=== PATIENT | male | born 1945 | race Caucasian/White ===

== ENCOUNTER 2016-05-14 11:28 | Outpatient (CLI) | payer MEDICARE, BC ==
[2016-05-14 12:32] LABS: ALT (SGPT) 41 U/L (0-55); AST (SGOT) 50 U/L (5-34); Alkaline Phosphatase 98 U/L (40-150); Anion Gap 13 mmol/L (10-20); BUN (Urea Nitrogen) 21 mg/dL (8.4-25.7); Bilirubin, Total 0.4 mg/dL (0.2-1.2); Calc. Creatinine Clearance 0 mL/min (70-130); Calcium 8.9 mg/dL (7.8-10.44); Carbon Dioxide 25 mmol/L (23-31); Chloride 108 mmol/L (98-107); Estimated GFR-MDRD 60; Globulin 2.9 g/dL (2.4-3.5); LDL Cholesterol, Calculated 103 mg/dL; Protein, Total 6.7 g/dL (5.8-8.1)
== END 2016-05-14 11:29 | disposition home or self-care (01) ==
LOC: BURLAB 11:28
PROVIDERS: ATTEND Internal Medicine Cardiovascular Disease
DX: E78.00 Pure hypercholesterolemia, unspecified (principal)
CPT/HCPCS: 36415; 80053; 80061

== ENCOUNTER 2016-07-07 13:43 | Outpatient (CLI) | payer MEDICARE, BC | END 2016-07-07 13:44 | disposition home or self-care (01) | LOC: HPCALD 13:43 | PROVIDERS: ATTEND Family Medicine | DX: R31.9 Hematuria, unspecified (principal) | CPT/HCPCS: 87086 ==

== ENCOUNTER 2016-07-07 14:21 | Outpatient (CLI) | payer MEDICARE, BC ==
--- NOTE | 2016-07-07 22:08 | CT ---
CT ABDOMEN AND PELVIS WITHOUT CONTRAST: Date: 07-07-[address] of the abdomen and pelvis was obtained for evaluation of hematuria. Axial slices were acqu ired after giving no oral or IV contrast in a renal stone protocol. Coronal reconstructions were don e. The lung bases show no acute infiltrates or effusions. The liver, spleen, pancreas, adrenal glands, and abdominal aorta all showed no acute findings. A calcified granuloma or two was noted in the live r. Bilateral renal cysts are present, including a large parapelvic cyst measuring 3.7 cm in the righ t kidney. It is similar in appearance to a 10-02-14 study. The aorta has a stent within its lower por tion and iliac arteries. Small calculi are present bilaterally in each kidney as before. While there is no hydronephrosis, to day there is a 6 mm calculus that appears to be either at the left UVJ or recently extruded into the bladder. There is no ureteral dilation at all. This is a new finding compared to the 2015 study. The bowel is nondistended. There are no inflammatory changes around bowel. No free air or free fluid was seen. CT of the pelvis shows prostatic enlargement. No pelvic masses or fluid collections were seen. Degen erative changes are prominent in the lumbar spine. IMPRESSION: 1. Bilateral renal calculi with evidence of a 6 mm calculus either in the urinary bladder on the lef t or right at the left UVJ. In any case, there is no ureteral dilatation remaining or hydronephrosis . 2. Bilateral nonobstructing renal calculi. Bilateral renal cysts. 3. Other findings as above. POS: HOME
== END 2016-07-07 14:22 | disposition home or self-care (01) ==
LOC: BURCT 14:21
PROVIDERS: ATTEND Family Medicine
DX: R31.9 Hematuria, unspecified (principal); N20.0 Calculus of kidney; N28.1 Cyst of kidney, acquired
CPT/HCPCS: 74176; 87086

== ENCOUNTER 2016-07-22 16:08 | Outpatient (CLI) | payer MEDICARE, BC | END 2016-07-22 16:09 | disposition home or self-care (01) | LOC: HPCALD 16:08 | PROVIDERS: ATTEND Family Medicine | DX: J32.0 Chronic maxillary sinusitis (principal) | CPT/HCPCS: 87070; 87077; 87186; 87205 ==

== ENCOUNTER 2016-08-14 11:35 | Outpatient (CLI) | payer MEDICARE, BC ==
--- NOTE | 2016-08-14 12:42 | RAD ---
LEFT SHOULDER 3 VIEWS: HISTORY: A 71-year-old male with left shoulder pain. COMPARISON: 02/08/16. FINDINGS: Severe left glenohumeral joint arthropathy changes with marked sclerosis with flattening deformity o f both the humeral head and glenoid. There is a large ossific focus probably in the subcoracoid rec ess, evidence for a synovial osteochondroma. No acute fracture or dislocation. IMPRESSION: Severe left glenohumeral joint arthropathy. Large synovial osteochondroma. No acute fracture or di slocation. Little change from 02/08/16. POS: [facility]
== END 2016-08-14 11:36 | disposition home or self-care (01) ==
LOC: BURRAD 11:35
PROVIDERS: ATTEND Family Medicine
DX: M25.512 Pain in left shoulder (principal); M19.012 Primary osteoarthritis, left shoulder; D36.7 Benign neoplasm of other specified sites

== ENCOUNTER 2016-11-17 12:20 | Emergency (ER) | payer MEDICARE, BC ==
[2016-11-17 13:12] LABS: #Monocytes 0.5 thou/uL (0.11-0.59); #Neutrophils 3.5 thou/uL (1.40-6.50); %Basophils 0.7 % (0.0-1.0); %Eosinophils 0.2 % (0.0-10.0); %Lymphocytes 20.2 % (21.0-51.0); %Neutrophils 68.9 % (42.0-75.0); Mean Corpuscular HGB CONC 32.7 g/dL (32.0-36.0); Mean Corpuscular Hemoglobin 28.6 pg (27.0-31.0); Mean Corpuscular Volume 87.4 fl (80.0-94.0); Mean Platelet Volume 7.8 fL (7.4-10.4); Platelet Count 143 thou/uL (130-400); Red Blood Cell (RBC) Count 4.89 mill/uL (4.70-6.10); White Blood Cell (WBC) Count 5.1 thou/uL (4.8-10.8)
[2016-11-17 13:21] LABS: ALT (SGPT) 43 U/L (8-55); AST (SGOT) 43 U/L (5-34); Albumin 4.2 g/dL (3.4-4.8); Alkaline Phosphatase 69 U/L (40-150); Anion Gap 14 mmol/L (10-20); BUN (Urea Nitrogen) 13 mg/dL (8.4-25.7); Bilirubin, Total 0.8 mg/dL (0.2-1.2); Calc. Creatinine Clearance 0 mL/min (70-130); Calcium 10.1 mg/dL (7.8-10.44); Carbon Dioxide 23 mmol/L (23-31); Chloride 108 mmol/L (98-107); Estimated GFR-MDRD 86; Globulin 2.9 g/dL (2.4-3.5); Glucose 109 mg/dL (80-115); Magnesium 1.8 mg/dL (1.6-2.6); Potassium 3.9 mmol/L (3.5-5.1); Protein, Total 7.1 g/dL (5.8-8.1); Sodium 141 mmol/L (136-145)
[2016-11-17 13:23] LABS: CKMB 2.4 ng/mL (0-6.6)
== END 2016-11-17 13:55 | disposition home or self-care (01) ==
LOC: BURERS 12:20
DX: F41.9 Anxiety disorder, unspecified (principal); R68.2 Dry mouth, unspecified; G47.30 Sleep apnea, unspecified; K21.9 Gastro-esophageal reflux disease without esophagitis; N40.0 Benign prostatic hyperplasia without lower urinary tract symptoms; M19.90 Unspecified osteoarthritis, unspecified site; J44.9 Chronic obstructive pulmonary disease, unspecified; I25.2 Old myocardial infarction; I25.10 Atherosclerotic heart disease of native coronary artery without angina pectoris; D50.9 Iron deficiency anemia, unspecified; E78.5 Hyperlipidemia, unspecified; I10 Essential (primary) hypertension; F32.9 Major depressive disorder, single episode, unspecified; Z87.891 Personal history of nicotine dependence; Z79.82 Long term (current) use of aspirin; Z79.899 Other long term (current) drug therapy
CPT/HCPCS: 36415; 80053; 82553; 83735; 83880; 84484; 85025; 93005

== ENCOUNTER 2016-12-17 16:18 | Emergency (ER) | payer MEDICARE, BC ==
[2016-12-17 16:51] LABS: #Basophils 0.1 thou/uL (0.0-0.2); #Eosinphils 0.2 thou/uL (0.0-0.7); #Lymphocytes 1.1 thou/uL (1.20-3.40); #Monocytes 0.7 thou/uL (0.11-0.59); %Basophils 1.3 % (0.0-1.0); %Eosinophils 4.8 % (0.0-10.0); %Lymphocytes 21.7 % (21.0-51.0); %Monocytes 13.5 % (0.0-10.0); %Neutrophils 58.8 % (42.0-75.0); Hemoglobin 12.4 g/dL (14.0-18.0); Mean Corpuscular HGB CONC 32.1 g/dL (32.0-36.0); Mean Corpuscular Hemoglobin 28.3 pg (27.0-31.0); Mean Platelet Volume 6.9 fL (7.4-10.4); PLT Morphology Comment HISTORY OF LOW PLATELET COUNTS; Platelet Count 112 thou/uL (130-400); RBC Distribution Width 16.1 % (11.5-14.5); White Blood Cell (WBC) Count 5.1 thou/uL (4.8-10.8)
[2016-12-17 16:58] LABS: MDiff Complete? YES
[2016-12-17 17:02] LABS: ALT (SGPT) 26 U/L (8-55); AST (SGOT) 39 U/L (5-34); Albumin 3.7 g/dL (3.4-4.8); Alkaline Phosphatase 81 U/L (40-150); Anion Gap 13 mmol/L (10-20); BUN (Urea Nitrogen) 21 mg/dL (8.4-25.7); Bilirubin, Total 0.7 mg/dL (0.2-1.2); Calc. Creatinine Clearance 0 mL/min (70-130); Calcium 9.7 mg/dL (7.8-10.44); Carbon Dioxide 27 mmol/L (23-31); Chloride 105 mmol/L (98-107); Estimated GFR-MDRD 56; Globulin 3.2 g/dL (2.4-3.5); Glucose 79 mg/dL (80-115); Potassium 4.2 mmol/L (3.5-5.1); Protein, Total 6.9 g/dL (5.8-8.1); Sodium 141 mmol/L (136-145)
[2016-12-17 17:03] LABS: CKMB 2.2 ng/mL (0-6.6)
[2016-12-17] MEDS ORDERED: Furosemide 40 MG/4 ML VIAL ONE (17:16)
[2016-12-17] MEDS ORDERED: Nitroglycerin 2% Ointment 1 INCH/1 GM Packet ONE (17:16)
--- NOTE | 2016-12-17 17:37 | RAD ---
PORTABLE CHEST: Date: 12/17/16 An AP portable film at 1631 hours is compared with an 11/02/16 study. Mild to moderate cardiomegaly is about the same as before. Median sternotomy sutures are seen from p rior surgery. The vessels are beginning to look a touch indistinct. There may be the very beginnings of some congestion. There is also slight blunting of the left costophrenic angle suggesting that th ere might be a tiny left pleural effusion. There are no lobar consolidations. IMPRESSION: Cardiomegaly with perhaps very early congestion. POS: HOME
[2016-12-17 18:09] LABS: Bilirubin Negative (Negative); Blood, Urine Negative (Negative); Clarity Clear (Clear); Glucose, Urine (Dipstick) Negative (Negative); Leukocyte Trace (Negative); Nitrite Negative (Negative); Protein, Urine (Dipstick) Negative (Neg-Trace); Specific Gravity, Urine 1.015 (1.005-1.030); Urobilinogen 0.2 mg/dL (0.2-1.0)
[2016-12-17 18:16] LABS: Bacteria/HPF None Seen HPF (None Seen); Crystals/HPF None Seen HPF (Negative); Hyaline Casts/LPF NONE SEEN LPF (0-3 Hyaline); Other Casts/LPF None Seen LPF (0-3 Hyaline); Oval Fat Bodies/HPF None Seen HPF (None Seen); RBC/HPF None Seen HPF (0-3); Renal Epithelial None Seen HPF (0-3); Sperm/HPF None Seen HPF (None Seen); Squamous Epithelial 0-3 HPF (0-3); Transitional Epithelial NONE SEEN HPF (0-3); Trichomonas/HPF None Seen HPF (None Seen); WBC/HPF 0-3 HPF (0-3); Yeast-All Forms None Seen HPF (None Seen)
== END 2016-12-17 18:24 | disposition short-term general hospital (02) ==
LOC: BURERS 16:18
DX: I11.0 Hypertensive heart disease with heart failure (principal); I50.9 Heart failure, unspecified; D50.9 Iron deficiency anemia, unspecified; R79.89 Other specified abnormal findings of blood chemistry; K21.9 Gastro-esophageal reflux disease without esophagitis; M19.90 Unspecified osteoarthritis, unspecified site; J44.9 Chronic obstructive pulmonary disease, unspecified; I25.10 Atherosclerotic heart disease of native coronary artery without angina pectoris; E78.5 Hyperlipidemia, unspecified; G47.30 Sleep apnea, unspecified; I25.2 Old myocardial infarction; F41.9 Anxiety disorder, unspecified; F32.9 Major depressive disorder, single episode, unspecified; Z87.891 Personal history of nicotine dependence; Z79.82 Long term (current) use of aspirin; Z79.899 Other long term (current) drug therapy
CPT/HCPCS: 71010; 80053; 81003; 81015; 82553; 83880; 84484; 85025; 93005; 94760; 96374; J1940

== ENCOUNTER 2017-03-11 14:05 | Outpatient (CLI) | payer MEDICARE, BC, OTHER ==
--- NOTE | 2017-03-11 15:16 | RAD ---
LEFT RIBS TWO VIEWS: HISTORY: Left rib fracture. Pain. FINDINGS: Callus formation and periosteal reaction surround a healing fracture at the posterolateral aspect of the left 9th rib. No evidence of pneumothorax. No new rib fractures are apparent. IMPRESSION: Healing left 9th rib fracture. POS: [facility]
== END 2017-03-11 14:06 | disposition home or self-care (01) ==
LOC: BURRAD 14:05
PROVIDERS: ATTEND Family Medicine
DX: S22.32XD Fracture of one rib, left side, subsequent encounter for fracture with routine healing (principal)

== ENCOUNTER 2017-04-03 14:57 | Inpatient (IN) | payer MEDICARE, BC ==
[2017-04-03] MEDS ORDERED: Bisacodyl 5 MG TAB PO PRN (21:13)
[2017-04-03] MEDS ORDERED: Calcium Carbonate 500 MG TAB PO PRN (21:13)
[2017-04-03] MEDS ORDERED: Bisacodyl 10 MG SUPP PR PRN (21:13)
[2017-04-03] MEDS ORDERED: Milk Of Magnesia 30 ML UDCUP PO PRN (21:13)
[2017-04-03] MEDS ORDERED: PROVENTIL INHALER 6.7 G (200 INHALATIONS) INH PRN (21:13)
[2017-04-03] MEDS ORDERED: Famotidine 20 MG TAB PO SCH (22:15)
[2017-04-03] MEDS ORDERED: Oseltamivir 75 MG CAP PO SCH (22:15)
[2017-04-03] MEDS ORDERED: Amiodarone 200 MG TAB PO SCH (22:15)
[2017-04-03] MEDS ORDERED: Carvedilol 25 MG TAB PO SCH (22:15)
[2017-04-03] MEDS ORDERED: DULoxetine 30 MG CAP PO SCH (22:30)
[2017-04-03] MEDS ORDERED: Tamsulosin HCl 0.4 MG CAP PO SCH (22:30)
[2017-04-03] MEDS ORDERED: Oseltamivir 75 MG CAP ONE (22:59)
[2017-04-04] MEDS ORDERED: Oseltamivir 75 MG CAP ONE ×2 (08:44→21:41)
[2017-04-04] MEDS ORDERED: PITAVASTATIN CALCIUM 2 MG PO SCH (09:00)
[2017-04-04] MEDS ORDERED: Fluticasone Propionate Nasal Spray 16 gm Bottle NASAL PRN (09:00)
[2017-04-04] MEDS: Famotidine 20 MG TAB PO SCH ×2 (09:11→21:46)
[2017-04-04] MEDS: Amiodarone 200 MG TAB PO SCH ×2 (09:12→21:47)
[2017-04-04] MEDS: Losartan Potassium 50 MG TAB PO SCH (09:13)
[2017-04-04] MEDS: DULoxetine 30 MG CAP PO SCH ×2 (09:14→21:47)
[2017-04-04] MEDS: Carvedilol 25 MG TAB PO SCH ×2 (09:15→17:20)
[2017-04-04] MEDS: predniSONE 20 MG TAB PO SCH (09:15)
[2017-04-04] MEDS: Furosemide 40 MG TAB PO SCH (09:16)
[2017-04-04] MEDS: Aspirin 325 MG TAB PO SCH (09:16)
[2017-04-04] MEDS: Potassium Chloride 20 MEQ TAB PO SCH (09:17)
[2017-04-04] MEDS: Polyethylene Glycol 3350 17 GM Packet PO SCH (09:19)
[2017-04-04] MEDS: Oseltamivir 75 MG CAP PO SCH ×2 (09:19→21:46)
[2017-04-04] MEDS: FENOFIBRATE NANOCRYSTALLIZED 145 MG PO SCH (13:27)
[2017-04-04] MEDS: Ezetimibe 10 MG TAB PO SCH (13:27)
[2017-04-04] MEDS: Acetaminophen 325 MG TAB PO PRN (17:25)
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
[2017-04-04] MEDS: Acetaminophen/Codeine 30-300mg Tablet PO PRN (21:48)
[2017-04-04] MEDS: Tamsulosin HCl 0.4 MG CAP PO SCH (21:50)
[2017-04-04] MEDS: Nystatin 500,000 UNITS/5 ML UDCUP SSP SCH (22:03)
[2017-04-05] MEDS ORDERED: Oseltamivir 75 MG CAP ONE ×2 (08:30→20:27)
[2017-04-05] MEDS: Aspirin 325 MG TAB PO SCH (08:37)
[2017-04-05] MEDS: Furosemide 40 MG TAB PO SCH (08:38)
[2017-04-05] MEDS: Carvedilol 25 MG TAB PO SCH ×2 (08:38→18:36)
[2017-04-05] MEDS: predniSONE 20 MG TAB PO SCH (08:38)
[2017-04-05] MEDS: Losartan Potassium 50 MG TAB PO SCH (08:38)
[2017-04-05] MEDS: Nystatin 500,000 UNITS/5 ML UDCUP SSP SCH ×4 (08:39→20:50)
[2017-04-05] MEDS: Amiodarone 200 MG TAB PO SCH ×2 (08:39→20:45)
[2017-04-05] MEDS: Potassium Chloride 20 MEQ TAB PO SCH (08:40)
[2017-04-05] MEDS: DULoxetine 30 MG CAP PO SCH ×2 (08:41→20:50)
[2017-04-05] MEDS: Famotidine 20 MG TAB PO SCH ×2 (08:41→21:21)
[2017-04-05] MEDS: Oseltamivir 75 MG CAP PO SCH ×2 (08:42→20:50)
[2017-04-05] MEDS: Acetaminophen/Codeine 30-300mg Tablet PO PRN ×3 (08:47→20:45)
[2017-04-05] MEDS: Ezetimibe 10 MG TAB PO SCH (08:57)
[2017-04-05] MEDS: FENOFIBRATE NANOCRYSTALLIZED 145 MG PO SCH (09:22)
[2017-04-05] MEDS: Polyethylene Glycol 3350 17 GM Packet PO SCH (09:26)
[2017-04-05] MEDS: Lorazepam 0.5 MG TAB PO PRN (20:43)
[2017-04-05] MEDS: Tamsulosin HCl 0.4 MG CAP PO SCH (20:49)
[2017-04-05] MEDS: Atorvastatin Calcium 10 MG TAB PO SCH (20:50)
[2017-04-06] MEDS: Losartan Potassium 50 MG TAB PO SCH (09:44)
[2017-04-06] MEDS: Aspirin 325 MG TAB PO SCH (09:44)
[2017-04-06] MEDS: Furosemide 40 MG TAB PO SCH (09:44)
[2017-04-06] MEDS: predniSONE 20 MG TAB PO SCH (09:44)
[2017-04-06] MEDS: Potassium Chloride 20 MEQ TAB PO SCH (09:45)
[2017-04-06] MEDS: Amiodarone 200 MG TAB PO SCH ×2 (09:45→21:02)
[2017-04-06] MEDS: Ezetimibe 10 MG TAB PO SCH (09:45)
[2017-04-06] MEDS: DULoxetine 30 MG CAP PO SCH ×2 (09:45→21:00)
[2017-04-06] MEDS: Famotidine 20 MG TAB PO SCH ×2 (09:45→21:02)
[2017-04-06] MEDS: Carvedilol 25 MG TAB PO SCH ×2 (09:45→17:04)
[2017-04-06] MEDS: FENOFIBRATE NANOCRYSTALLIZED 145 MG PO SCH (09:46)
[2017-04-06] MEDS: Nystatin 500,000 UNITS/5 ML UDCUP SSP SCH ×4 (09:47→21:01)
[2017-04-06] MEDS: Polyethylene Glycol 3350 17 GM Packet PO SCH (09:48)
[2017-04-06] MEDS: Oseltamivir 75 MG CAP PO SCH (10:07)
[2017-04-06] MEDS: Acetaminophen/Codeine 30-300mg Tablet PO PRN (18:12)
[2017-04-06] MEDS: Lorazepam 0.5 MG TAB PO PRN (20:59)
[2017-04-06] MEDS: Acetaminophen 325 MG TAB PO PRN (21:01)
[2017-04-06] MEDS: Tamsulosin HCl 0.4 MG CAP PO SCH (21:01)
[2017-04-06] MEDS: Atorvastatin Calcium 10 MG TAB PO SCH (21:07)
[2017-04-07] MEDS: Acetaminophen/Codeine 30-300mg Tablet PO PRN ×2 (05:00→14:23)
[2017-04-07] MEDS: Aspirin 325 MG TAB PO SCH (08:34)
[2017-04-07] MEDS: Amiodarone 200 MG TAB PO SCH ×2 (08:35→20:07)
[2017-04-07] MEDS: Losartan Potassium 50 MG TAB PO SCH ×2 (08:35→08:36)
[2017-04-07] MEDS: predniSONE 20 MG TAB PO SCH (08:37)
[2017-04-07] MEDS: Furosemide 40 MG TAB PO SCH (08:37)
[2017-04-07] MEDS: Famotidine 20 MG TAB PO SCH ×2 (08:37→20:04)
[2017-04-07] MEDS: DULoxetine 30 MG CAP PO SCH ×2 (08:38→20:07)
[2017-04-07] MEDS: Carvedilol 25 MG TAB PO SCH ×2 (08:38→17:24)
[2017-04-07] MEDS: Potassium Chloride 20 MEQ TAB PO SCH (08:38)
[2017-04-07] MEDS: Nystatin 500,000 UNITS/5 ML UDCUP SSP SCH ×4 (08:38→20:07)
[2017-04-07] MEDS: Ezetimibe 10 MG TAB PO SCH (08:39)
[2017-04-07] MEDS: Polyethylene Glycol 3350 17 GM Packet PO SCH (08:40)
[2017-04-07] MEDS: FENOFIBRATE NANOCRYSTALLIZED 145 MG PO SCH (08:47)
[2017-04-07] MEDS ORDERED: Nystatin 500,000 UNITS/5 ML UDCUP ONE (11:23)
[2017-04-07] MEDS: Lorazepam 0.5 MG TAB PO PRN (15:38)
[2017-04-07] MEDS: Tamsulosin HCl 0.4 MG CAP PO SCH (20:07)
[2017-04-07] MEDS: Atorvastatin Calcium 10 MG TAB PO SCH (20:29)
[2017-04-08] MEDS: Aspirin 325 MG TAB PO SCH (09:52)
[2017-04-08] MEDS: Amiodarone 200 MG TAB PO SCH ×2 (09:54→20:24)
[2017-04-08] MEDS: predniSONE 20 MG TAB PO SCH (09:54)
[2017-04-08] MEDS: Potassium Chloride 20 MEQ TAB PO SCH (09:54)
[2017-04-08] MEDS: Carvedilol 25 MG TAB PO SCH ×2 (09:54→16:54)
[2017-04-08] MEDS: DULoxetine 30 MG CAP PO SCH ×2 (09:55→20:25)
[2017-04-08] MEDS: Famotidine 20 MG TAB PO SCH ×2 (09:56→20:24)
[2017-04-08] MEDS: Nystatin 500,000 UNITS/5 ML UDCUP SSP SCH ×4 (09:56→23:46)
[2017-04-08] MEDS: Furosemide 40 MG TAB PO SCH (09:56)
[2017-04-08] MEDS: Ezetimibe 10 MG TAB PO SCH (09:57)
[2017-04-08] MEDS: Polyethylene Glycol 3350 17 GM Packet PO SCH (09:59)
[2017-04-08] MEDS: Fenofibrate Nanocrystallized 145 MG TAB PO SCH (09:59)
[2017-04-08] MEDS: Losartan Potassium 50 MG TAB PO SCH (10:00)
[2017-04-08] MEDS: Acetaminophen/Codeine 30-300mg Tablet PO PRN ×2 (10:06→20:35)
[2017-04-08] MEDS: Lorazepam 0.5 MG TAB PO PRN (12:01)
[2017-04-08] MEDS: Atorvastatin Calcium 10 MG TAB PO SCH (20:24)
[2017-04-08] MEDS: Tamsulosin HCl 0.4 MG CAP PO SCH (20:24)
[2017-04-09] MEDS: Lorazepam 0.5 MG TAB PO PRN ×2 (03:31→17:46)
[2017-04-09] MEDS ORDERED: Oseltamivir 75 MG CAP ONE (08:22)
[2017-04-09] MEDS: Fenofibrate Nanocrystallized 145 MG TAB PO SCH (08:49)
[2017-04-09] MEDS: Ezetimibe 10 MG TAB PO SCH (08:49)
[2017-04-09] MEDS: Amiodarone 200 MG TAB PO SCH ×2 (08:50→20:41)
[2017-04-09] MEDS: Polyethylene Glycol 3350 17 GM Packet PO SCH (08:50)
[2017-04-09] MEDS: Nystatin 500,000 UNITS/5 ML UDCUP SSP SCH ×4 (08:50→20:44)
[2017-04-09] MEDS: Furosemide 40 MG TAB PO SCH (08:51)
[2017-04-09] MEDS: DULoxetine 30 MG CAP PO SCH ×2 (08:51→20:42)
[2017-04-09] MEDS: Potassium Chloride 20 MEQ TAB PO SCH (08:51)
[2017-04-09] MEDS: Carvedilol 25 MG TAB PO SCH ×2 (08:52→17:23)
[2017-04-09] MEDS: Losartan Potassium 50 MG TAB PO SCH (08:52)
[2017-04-09] MEDS: predniSONE 20 MG TAB PO SCH (08:52)
[2017-04-09] MEDS: Aspirin 325 MG TAB PO SCH (08:52)
[2017-04-09] MEDS: Famotidine 20 MG TAB PO SCH ×2 (08:53→20:41)
[2017-04-09] MEDS: Acetaminophen/Codeine 30-300mg Tablet PO PRN ×2 (12:22→20:42)
[2017-04-09] MEDS: Atorvastatin Calcium 10 MG TAB PO SCH (20:41)
[2017-04-09] MEDS: Tamsulosin HCl 0.4 MG CAP PO SCH (20:41)
[2017-04-10] MEDS: Acetaminophen/Codeine 30-300mg Tablet PO PRN ×2 (05:59→21:14)
[2017-04-10] MEDS: Fenofibrate Nanocrystallized 145 MG TAB PO SCH (09:11)
[2017-04-10] MEDS: Polyethylene Glycol 3350 17 GM Packet PO SCH (09:11)
[2017-04-10] MEDS: Ezetimibe 10 MG TAB PO SCH (09:11)
[2017-04-10] MEDS: Amiodarone 200 MG TAB PO SCH ×2 (09:12→21:12)
[2017-04-10] MEDS: Furosemide 40 MG TAB PO SCH (09:13)
[2017-04-10] MEDS: Losartan Potassium 50 MG TAB PO SCH (09:13)
[2017-04-10] MEDS: DULoxetine 30 MG CAP PO SCH ×2 (09:13→21:11)
[2017-04-10] MEDS: predniSONE 20 MG TAB PO SCH (09:13)
[2017-04-10] MEDS: Aspirin 325 MG TAB PO SCH (09:14)
[2017-04-10] MEDS: Famotidine 20 MG TAB PO SCH ×2 (09:14→21:12)
[2017-04-10] MEDS: Carvedilol 25 MG TAB PO SCH ×2 (09:15→17:30)
[2017-04-10] MEDS: Potassium Chloride 20 MEQ TAB PO SCH (09:15)
[2017-04-10] MEDS: Nystatin 500,000 UNITS/5 ML UDCUP SSP SCH ×4 (09:19→21:14)
[2017-04-10] MEDS: Lorazepam 0.5 MG TAB PO PRN ×2 (10:47→22:22)
[2017-04-10] MEDS: Acetaminophen 325 MG TAB PO PRN (12:03)
[2017-04-10] MEDS: Tamsulosin HCl 0.4 MG CAP PO SCH (21:11)
[2017-04-10] MEDS: Atorvastatin Calcium 10 MG TAB PO SCH (21:13)
[2017-04-11] MEDS: Acetaminophen/Codeine 30-300mg Tablet PO PRN ×2 (06:05→18:11)
[2017-04-11] MEDS: Amiodarone 200 MG TAB PO SCH ×2 (10:06→20:40)
[2017-04-11] MEDS: Furosemide 40 MG TAB PO SCH (10:06)
[2017-04-11] MEDS: predniSONE 20 MG TAB PO SCH (10:06)
[2017-04-11] MEDS: Losartan Potassium 50 MG TAB PO SCH (10:07)
[2017-04-11] MEDS: DULoxetine 30 MG CAP PO SCH ×2 (10:07→20:39)
[2017-04-11] MEDS: Potassium Chloride 20 MEQ TAB PO SCH (10:08)
[2017-04-11] MEDS: Ezetimibe 10 MG TAB PO SCH (10:08)
[2017-04-11] MEDS: Fenofibrate Nanocrystallized 145 MG TAB PO SCH (10:08)
[2017-04-11] MEDS: Aspirin 325 MG TAB PO SCH (10:08)
[2017-04-11] MEDS: Carvedilol 25 MG TAB PO SCH ×2 (10:08→17:25)
[2017-04-11] MEDS: Polyethylene Glycol 3350 17 GM Packet PO SCH (10:09)
[2017-04-11] MEDS: Famotidine 20 MG TAB PO SCH ×2 (10:10→20:40)
[2017-04-11] MEDS: Nystatin 500,000 UNITS/5 ML UDCUP SSP SCH ×4 (10:10→20:39)
[2017-04-11] MEDS: traMADol HCl 50 MG TAB PO PRN (14:13)
[2017-04-11] MEDS: Lorazepam 0.5 MG TAB PO PRN (18:11)
[2017-04-11] MEDS: Tamsulosin HCl 0.4 MG CAP PO SCH (20:39)
[2017-04-11] MEDS: Atorvastatin Calcium 10 MG TAB PO SCH (20:40)
[2017-04-12] MEDS: traMADol HCl 50 MG TAB PO PRN (03:12)
[2017-04-12] MEDS: Acetaminophen/Codeine 30-300mg Tablet PO PRN ×3 (06:15→21:00)
[2017-04-12] MEDS: Lorazepam 0.5 MG TAB PO PRN ×2 (06:51→23:08)
[2017-04-12] MEDS ORDERED: Famotidine 20 MG TAB ONE (09:46)
[2017-04-12] MEDS: Aspirin 325 MG TAB PO SCH (09:50)
[2017-04-12] MEDS: Nystatin 500,000 UNITS/5 ML UDCUP SSP SCH ×4 (09:53→20:59)
[2017-04-12] MEDS: Fenofibrate Nanocrystallized 145 MG TAB PO SCH (09:53)
[2017-04-12] MEDS: DULoxetine 30 MG CAP PO SCH ×2 (09:53→20:58)
[2017-04-12] MEDS: Famotidine 20 MG TAB PO SCH ×2 (09:53→20:59)
[2017-04-12] MEDS: predniSONE 20 MG TAB PO SCH (09:54)
[2017-04-12] MEDS: Carvedilol 25 MG TAB PO SCH ×2 (10:04→17:36)
[2017-04-12] MEDS: Potassium Chloride 20 MEQ TAB PO SCH (10:05)
[2017-04-12] MEDS: Amiodarone 200 MG TAB PO SCH ×2 (10:06→20:48)
[2017-04-12] MEDS: Ezetimibe 10 MG TAB PO SCH (10:07)
[2017-04-12] MEDS: Furosemide 40 MG TAB PO SCH (10:07)
[2017-04-12] MEDS: Losartan Potassium 50 MG TAB PO SCH (10:08)
[2017-04-12] MEDS: Polyethylene Glycol 3350 17 GM Packet PO SCH (10:08)
[2017-04-12] MEDS: Tamsulosin HCl 0.4 MG CAP PO SCH (20:58)
[2017-04-12] MEDS: Atorvastatin Calcium 10 MG TAB PO SCH (21:24)
[2017-04-13] MEDS: Acetaminophen/Codeine 30-300mg Tablet PO PRN ×3 (08:18→21:22)
[2017-04-13] MEDS: Potassium Chloride 20 MEQ TAB PO SCH (09:54)
[2017-04-13] MEDS: Aspirin 325 MG TAB PO SCH (09:54)
[2017-04-13] MEDS: Famotidine 20 MG TAB PO SCH ×2 (09:55→21:25)
[2017-04-13] MEDS: Amiodarone 200 MG TAB PO SCH ×2 (09:55→21:21)
[2017-04-13] MEDS: Fenofibrate Nanocrystallized 145 MG TAB PO SCH (09:55)
[2017-04-13] MEDS: DULoxetine 30 MG CAP PO SCH ×2 (09:56→22:26)
[2017-04-13] MEDS: predniSONE 20 MG TAB PO SCH (09:56)
[2017-04-13] MEDS: Polyethylene Glycol 3350 17 GM Packet PO SCH (09:57)
[2017-04-13] MEDS: Ezetimibe 10 MG TAB PO SCH (09:57)
[2017-04-13] MEDS: Nystatin 500,000 UNITS/5 ML UDCUP SSP SCH ×4 (09:57→21:20)
[2017-04-13] MEDS: Furosemide 40 MG TAB PO SCH (10:25)
[2017-04-13] MEDS: Losartan Potassium 50 MG TAB PO SCH (10:25)
[2017-04-13 10:26] VITALS: BMI 44.1
[2017-04-13] MEDS: Carvedilol 25 MG TAB PO SCH (10:27)
[2017-04-13] MEDS ORDERED: Lidocaine 5% Patch TD SCH (11:15)
[2017-04-13] MEDS: Carvedilol 12.5 MG TAB PO SCH ×2 (11:59→17:36)
[2017-04-13] MEDS: Lidocaine 5% Patch TD SCH (12:00)
[2017-04-13] MEDS: Atorvastatin Calcium 10 MG TAB PO SCH (21:21)
[2017-04-13] MEDS: Tamsulosin HCl 0.4 MG CAP PO SCH (21:21)
[2017-04-13] MEDS: Lidocaine Patch Removal 1 EACH TOP SCH (21:26)
[2017-04-13] MEDS ORDERED: Lorazepam 0.5 MG TAB ONE (22:19)
[2017-04-13] MEDS: Lorazepam 0.5 MG TAB PO PRN (22:26)
[2017-04-14] MEDS: Acetaminophen/Codeine 30-300mg Tablet PO PRN ×4 (03:42→23:20)
[2017-04-14] MEDS: Lidocaine 5% Patch TD SCH (08:29)
[2017-04-14] MEDS: Nystatin 500,000 UNITS/5 ML UDCUP SSP SCH ×4 (08:29→21:14)
[2017-04-14] MEDS: Furosemide 40 MG TAB PO SCH (08:29)
[2017-04-14] MEDS: Amiodarone 200 MG TAB PO SCH ×2 (08:29→21:15)
[2017-04-14] MEDS: DULoxetine 30 MG CAP PO SCH ×2 (08:30→21:15)
[2017-04-14] MEDS: Famotidine 20 MG TAB PO SCH ×2 (08:30→21:14)
[2017-04-14] MEDS: Fenofibrate Nanocrystallized 145 MG TAB PO SCH (08:30)
[2017-04-14] MEDS: Potassium Chloride 20 MEQ TAB PO SCH (08:30)
[2017-04-14] MEDS: predniSONE 20 MG TAB PO SCH (08:30)
[2017-04-14] MEDS: Ezetimibe 10 MG TAB PO SCH (08:33)
[2017-04-14] MEDS: Aspirin 325 MG TAB PO SCH (08:33)
[2017-04-14] MEDS: Polyethylene Glycol 3350 17 GM Packet PO SCH (08:33)
[2017-04-14] MEDS: Carvedilol 12.5 MG TAB PO SCH (08:38)
[2017-04-14] MEDS ORDERED: Lorazepam 0.5 MG TAB ONE ×2 (09:53→23:17)
[2017-04-14] MEDS: Lorazepam 0.5 MG TAB PO PRN ×2 (09:57→23:21)
[2017-04-14] MEDS: Losartan Potassium 50 MG TAB PO SCH ×2 (09:57→09:59)
[2017-04-14] MEDS: Carvedilol 25 MG TAB PO SCH (17:05)
[2017-04-14] MEDS: Tamsulosin HCl 0.4 MG CAP PO SCH (21:14)
[2017-04-14] MEDS: Atorvastatin Calcium 10 MG TAB PO SCH (21:14)
[2017-04-14] MEDS: Lidocaine Patch Removal 1 EACH TOP SCH (23:20)
[2017-04-15] MEDS: Aspirin 325 MG TAB PO SCH (08:59)
[2017-04-15] MEDS: Amiodarone 200 MG TAB PO SCH ×2 (08:59→21:01)
[2017-04-15] MEDS: Carvedilol 25 MG TAB PO SCH ×2 (09:00→17:22)
[2017-04-15] MEDS: Potassium Chloride 20 MEQ TAB PO SCH (09:00)
[2017-04-15] MEDS: DULoxetine 30 MG CAP PO SCH ×2 (09:01→21:01)
[2017-04-15] MEDS: predniSONE 20 MG TAB PO SCH (09:01)
[2017-04-15] MEDS: Nystatin 500,000 UNITS/5 ML UDCUP SSP SCH ×4 (09:01→21:02)
[2017-04-15] MEDS: Losartan Potassium 50 MG TAB PO SCH (09:02)
[2017-04-15] MEDS: Furosemide 40 MG TAB PO SCH (09:02)
[2017-04-15] MEDS: Fenofibrate Nanocrystallized 145 MG TAB PO SCH (09:02)
[2017-04-15] MEDS: Famotidine 20 MG TAB PO SCH ×2 (09:02→21:02)
[2017-04-15] MEDS: Lidocaine 5% Patch TD SCH (09:03)
[2017-04-15] MEDS: Ezetimibe 10 MG TAB PO SCH (09:03)
[2017-04-15] MEDS: Polyethylene Glycol 3350 17 GM Packet PO SCH (09:03)
[2017-04-15] MEDS: Acetaminophen/Codeine 30-300mg Tablet PO PRN ×3 (09:28→23:31)
[2017-04-15] MEDS: Tamsulosin HCl 0.4 MG CAP PO SCH (21:00)
[2017-04-15] MEDS: Atorvastatin Calcium 10 MG TAB PO SCH (21:01)
[2017-04-15] MEDS: traZODone HCl 50 MG TAB PO SCH (21:01)
[2017-04-15] MEDS: Lidocaine Patch Removal 1 EACH TOP SCH (21:02)
[2017-04-15] MEDS ORDERED: Lorazepam 0.5 MG TAB ONE (23:26)
[2017-04-15] MEDS: Lorazepam 0.5 MG TAB PO PRN (23:32)
[2017-04-16] MEDS: Ezetimibe 10 MG TAB PO SCH (09:06)
[2017-04-16] MEDS: predniSONE 20 MG TAB PO SCH (09:07)
[2017-04-16] MEDS: Famotidine 20 MG TAB PO SCH ×2 (09:07→21:33)
[2017-04-16] MEDS: Polyethylene Glycol 3350 17 GM Packet PO SCH (09:07)
[2017-04-16] MEDS: Furosemide 40 MG TAB PO SCH (09:07)
[2017-04-16] MEDS: Lidocaine 5% Patch TD SCH (09:07)
[2017-04-16] MEDS: Potassium Chloride 20 MEQ TAB PO SCH (09:07)
[2017-04-16] MEDS: Fenofibrate Nanocrystallized 145 MG TAB PO SCH (09:07)
[2017-04-16] MEDS: Carvedilol 25 MG TAB PO SCH ×2 (09:08→18:02)
[2017-04-16] MEDS: Aspirin 325 MG TAB PO SCH (09:08)
[2017-04-16] MEDS: DULoxetine 30 MG CAP PO SCH ×2 (09:08→21:37)
[2017-04-16] MEDS: Amiodarone 200 MG TAB PO SCH ×2 (09:08→21:39)
[2017-04-16] MEDS: Losartan Potassium 50 MG TAB PO SCH (09:08)
[2017-04-16] MEDS: Nystatin 500,000 UNITS/5 ML UDCUP SSP SCH ×4 (09:09→21:29)
[2017-04-16] MEDS: Acetaminophen/Codeine 30-300mg Tablet PO PRN (09:21)
[2017-04-16] MEDS: traMADol HCl 50 MG TAB PO PRN (15:05)
[2017-04-16 19:36] VITALS: TEMP 98.3
[2017-04-16] MEDS: traZODone HCl 50 MG TAB PO SCH (21:32)
[2017-04-16] MEDS: Tamsulosin HCl 0.4 MG CAP PO SCH (21:34)
[2017-04-16] MEDS: Lorazepam 0.5 MG TAB PO PRN (21:37)
[2017-04-16] MEDS: Atorvastatin Calcium 10 MG TAB PO SCH (21:40)
[2017-04-16] MEDS: Lidocaine Patch Removal 1 EACH TOP SCH (21:40)
[2017-04-17] MEDS: Acetaminophen/Codeine 30-300mg Tablet PO PRN (09:54)
[2017-04-17] MEDS: Lidocaine 5% Patch TD SCH (09:57)
[2017-04-17] MEDS: Potassium Chloride 20 MEQ TAB PO SCH (10:00)
[2017-04-17] MEDS: Aspirin 325 MG TAB PO SCH (10:01)
[2017-04-17] MEDS: Polyethylene Glycol 3350 17 GM Packet PO SCH (10:01)
[2017-04-17] MEDS: Nystatin 500,000 UNITS/5 ML UDCUP SSP SCH ×2 (10:01→13:53)
[2017-04-17] MEDS: Carvedilol 25 MG TAB PO SCH (10:01)
[2017-04-17] MEDS: Famotidine 20 MG TAB PO SCH (10:02)
[2017-04-17] MEDS: Losartan Potassium 50 MG TAB PO SCH (10:02)
[2017-04-17] MEDS: Fenofibrate Nanocrystallized 145 MG TAB PO SCH (10:02)
[2017-04-17] MEDS: predniSONE 20 MG TAB PO SCH (10:02)
[2017-04-17] MEDS: DULoxetine 30 MG CAP PO SCH (10:02)
[2017-04-17] MEDS: Amiodarone 200 MG TAB PO SCH (10:03)
[2017-04-17] MEDS: Ezetimibe 10 MG TAB PO SCH (10:03)
[2017-04-17] MEDS: Furosemide 40 MG TAB PO SCH (10:03)
[2017-04-17 12:02] VITALS: BP 118/65
[2017-04-17] MEDS: traMADol HCl 50 MG TAB PO PRN (13:51)
== END 2017-04-17 15:31 | DRG 947 ==
LOC: BURMED 17:02
PROVIDERS: ADMIT Family Medicine; ATTEND Family Medicine
DX: R53.1 Weakness (principal); G93.41 Metabolic encephalopathy; I47.2 Ventricular tachycardia; I11.0 Hypertensive heart disease with heart failure; I50.22 Chronic systolic (congestive) heart failure; R13.10 Dysphagia, unspecified; J44.1 Chronic obstructive pulmonary disease with (acute) exacerbation; I25.5 Ischemic cardiomyopathy; G47.33 Obstructive sleep apnea (adult) (pediatric); K21.9 Gastro-esophageal reflux disease without esophagitis; N40.0 Benign prostatic hyperplasia without lower urinary tract symptoms; M19.90 Unspecified osteoarthritis, unspecified site; G89.29 Other chronic pain; Z79.891 Long term (current) use of opiate analgesic; I25.10 Atherosclerotic heart disease of native coronary artery without angina pectoris; D50.9 Iron deficiency anemia, unspecified; E78.5 Hyperlipidemia, unspecified; Z95.1 Presence of aortocoronary bypass graft; Z95.810 Presence of automatic (implantable) cardiac defibrillator; Z88.1 Allergy status to other antibiotic agents; Z88.8 Allergy status to other drugs, medicaments and biological substances; Z79.82 Long term (current) use of aspirin; J10.1 Influenza due to other identified influenza virus with other respiratory manifestations
CPT/HCPCS: 94640; G8981-GP-CM; G8982-GP-CK; G8987-GO-CM; G8988-GO-CJ; G8996-GN-CK; G8997-GN-CJ; J7506; J7620

== ENCOUNTER 2017-04-22 12:57 | Inpatient (IN) | payer MEDICARE, BC ==
[2017-04-22] MEDS ORDERED: PROVENTIL INHALER 6.7 G (200 INHALATIONS) INH PRN (18:45)
[2017-04-22] MEDS ORDERED: Milk Of Magnesia 30 ML UDCUP PO PRN (18:45)
[2017-04-22] MEDS ORDERED: Bisacodyl 10 MG SUPP PR PRN (19:04)
[2017-04-22] MEDS ORDERED: Fluticasone Propionate Nasal Spray 16 gm Bottle NASAL PRN (19:15)
[2017-04-22] MEDS: DULoxetine 30 MG CAP PO SCH (21:41)
[2017-04-22] MEDS: predniSONE 10 MG TAB PO SCH (21:41)
[2017-04-22] MEDS: Tamsulosin HCl 0.4 MG CAP PO SCH (21:41)
[2017-04-22] MEDS: traZODone HCl 50 MG TAB PO SCH (21:43)
[2017-04-22] MEDS: Calcium Carbonate 500 MG ChewTAB PO SCH (21:44)
[2017-04-22] MEDS: Lidocaine Patch Removal 1 EACH TOP SCH (21:49)
[2017-04-23] MEDS: Polyethylene Glycol 3350 17 GM Packet PO SCH (08:37)
[2017-04-23] MEDS: Ezetimibe 10 MG TAB PO SCH (08:37)
[2017-04-23] MEDS: Calcium Carbonate 500 MG ChewTAB PO SCH ×4 (08:37→21:36)
[2017-04-23] MEDS: Aspirin 325 MG TAB PO SCH (08:38)
[2017-04-23] MEDS: Losartan Potassium 50 MG TAB PO SCH (08:38)
[2017-04-23] MEDS: Potassium Chloride 20 MEQ TAB PO SCH (08:38)
[2017-04-23] MEDS: Furosemide 40 MG TAB PO SCH (08:38)
[2017-04-23] MEDS: Carvedilol 25 MG TAB PO SCH ×2 (08:39→17:06)
[2017-04-23] MEDS: Amiodarone 200 MG TAB PO SCH (08:39)
[2017-04-23] MEDS: DULoxetine 30 MG CAP PO SCH ×2 (08:40→21:36)
[2017-04-23] MEDS: Atorvastatin Calcium 10 MG TAB PO SCH (08:40)
[2017-04-23] MEDS: Fenofibrate Nanocrystallized 145 MG TAB PO SCH (08:40)
[2017-04-23] MEDS: Lidocaine 5% Patch TD SCH (08:41)
[2017-04-23] MEDS ORDERED: OLODATEROL HCL INH SCH (09:00)
[2017-04-23] MEDS ORDERED: Prevnar 13-Val Conj/PF 0.5 ML SYRINGE IM ONE (09:00)
[2017-04-23] MEDS ORDERED: TIOTROPIUM BR INH SCH (09:00)
[2017-04-23] MEDS ORDERED: FLU VACC TS2017-18 (>65YR) 0.5 ML SYRINGE IM ONE (09:00)
[2017-04-23] MEDS: Acetaminophen/Codeine 30-300mg Tablet PO PRN (11:53)
[2017-04-23] MEDS ORDERED: Lidocaine 2% Jelly 5 ML TUBE TOP PRN ×2 (15:40→16:45)
[2017-04-23] MEDS ORDERED: Bisacodyl 10 MG SUPP PR PRN (16:45)
[2017-04-23] MEDS: Lidocaine Viscous Sol 2% 15 ml UD Cup SSP SCH ×2 (17:05→21:37)
[2017-04-23] MEDS ORDERED: Lidocaine Viscous Sol 2% 15 ml UD Cup ONE (21:30)
[2017-04-23] MEDS: traZODone HCl 50 MG TAB PO SCH (21:36)
[2017-04-23] MEDS: Tamsulosin HCl 0.4 MG CAP PO SCH (21:36)
[2017-04-23] MEDS: Lidocaine Patch Removal 1 EACH TOP SCH (21:37)
[2017-04-23] MEDS: predniSONE 10 MG TAB PO SCH (21:46)
[2017-04-23] MEDS: Lorazepam 0.5 MG TAB PO PRN (21:46)
[2017-04-24 05:44] LABS: #Lymphocytes 0.7 thou/uL (1.20-3.40); #Monocytes 0.2 thou/uL (0.11-0.59); #Neutrophils 1.7 thou/uL (1.40-6.50); %Basophils 0.6 % (0.0-1.0); %Eosinophils 0.5 % (0.0-10.0); %Lymphocytes 25.5 % (21.0-51.0); %Monocytes 8.6 % (0.0-10.0); %Neutrophils 64.9 % (42.0-75.0); Hemoglobin 12.9 g/dL (14.0-18.0); MDiff Complete? YES; Mean Corpuscular HGB CONC 34.7 g/dL (32.0-36.0); Mean Corpuscular Hemoglobin 30.7 pg (27.0-31.0); Mean Corpuscular Volume 88.6 fl (80.0-94.0); Mean Platelet Volume 7.6 fL (7.4-10.4); Ovalocytes SLIGHT = 2-5 cells (100X) (0-1/hpf); PLT Morphology Comment Appears Decreased; Platelet Count 64 thou/uL (130-400); RBC Distribution Width 14.4 % (11.5-14.5); Red Blood Cell (RBC) Count 4.18 mill/uL (4.70-6.10); White Blood Cell (WBC) Count 2.7 thou/uL (4.8-10.8)
[2017-04-24] MEDS: Polyethylene Glycol 3350 17 GM Packet PO SCH (09:54)
[2017-04-24] MEDS: Calcium Carbonate 500 MG ChewTAB PO SCH ×4 (09:56→21:09)
[2017-04-24] MEDS: Aspirin 325 MG TAB PO SCH (09:58)
[2017-04-24] MEDS: Fenofibrate Nanocrystallized 145 MG TAB PO SCH (09:58)
[2017-04-24] MEDS: Atorvastatin Calcium 10 MG TAB PO SCH (09:59)
[2017-04-24] MEDS: Furosemide 40 MG TAB PO SCH (09:59)
[2017-04-24] MEDS: Losartan Potassium 50 MG TAB PO SCH (09:59)
[2017-04-24] MEDS: Amiodarone 200 MG TAB PO SCH (10:00)
[2017-04-24] MEDS: Potassium Chloride 20 MEQ TAB PO SCH (10:00)
[2017-04-24] MEDS: DULoxetine 30 MG CAP PO SCH ×2 (10:01→21:08)
[2017-04-24] MEDS: Carvedilol 25 MG TAB PO SCH ×2 (10:01→17:17)
[2017-04-24] MEDS: Lidocaine 5% Patch TD SCH (10:02)
[2017-04-24] MEDS: Ezetimibe 10 MG TAB PO SCH (10:06)
[2017-04-24] MEDS: Lidocaine Viscous Sol 2% 15 ml UD Cup SSP SCH ×4 (10:11→21:08)
[2017-04-24] MEDS ORDERED: Lidocaine Viscous Sol 2% 15 ml UD Cup ONE (21:04)
[2017-04-24] MEDS: Tamsulosin HCl 0.4 MG CAP PO SCH (21:08)
[2017-04-24] MEDS: traZODone HCl 50 MG TAB PO SCH (21:08)
[2017-04-24] MEDS: Lidocaine Patch Removal 1 EACH TOP SCH (21:09)
[2017-04-24] MEDS: predniSONE 10 MG TAB PO SCH (21:09)
[2017-04-25] MEDS: Acetaminophen/Codeine 30-300mg Tablet PO PRN (10:21)
[2017-04-25] MEDS: DULoxetine 30 MG CAP PO SCH ×2 (10:21→21:11)
[2017-04-25] MEDS: Aspirin 325 MG TAB PO SCH (10:22)
[2017-04-25] MEDS: Losartan Potassium 50 MG TAB PO SCH (10:23)
[2017-04-25] MEDS: Furosemide 40 MG TAB PO SCH (10:23)
[2017-04-25] MEDS: Carvedilol 25 MG TAB PO SCH ×2 (10:23→16:54)
[2017-04-25] MEDS: Atorvastatin Calcium 10 MG TAB PO SCH (10:24)
[2017-04-25] MEDS: Calcium Carbonate 500 MG ChewTAB PO SCH ×4 (10:24→21:10)
[2017-04-25] MEDS: Fenofibrate Nanocrystallized 145 MG TAB PO SCH (10:24)
[2017-04-25] MEDS: Potassium Chloride 20 MEQ TAB PO SCH (10:24)
[2017-04-25] MEDS: Lidocaine Viscous Sol 2% 15 ml UD Cup SSP SCH ×4 (10:25→21:10)
[2017-04-25] MEDS: Ezetimibe 10 MG TAB PO SCH (10:25)
[2017-04-25] MEDS: Polyethylene Glycol 3350 17 GM Packet PO SCH (10:25)
[2017-04-25] MEDS: Amiodarone 200 MG TAB PO SCH (10:25)
[2017-04-25] MEDS: Lidocaine 5% Patch TD SCH (10:26)
[2017-04-25] MEDS ORDERED: Lidocaine Viscous Sol 2% 15 ml UD Cup ONE (21:06)
[2017-04-25] MEDS: Tamsulosin HCl 0.4 MG CAP PO SCH (21:11)
[2017-04-25] MEDS: traZODone HCl 50 MG TAB PO SCH (21:12)
[2017-04-25] MEDS: Lidocaine Patch Removal 1 EACH TOP SCH (21:25)
[2017-04-26] MEDS: Calcium Carbonate 500 MG ChewTAB PO SCH ×4 (10:04→20:55)
[2017-04-26] MEDS: Carvedilol 25 MG TAB PO SCH ×2 (10:05→18:05)
[2017-04-26] MEDS: Losartan Potassium 50 MG TAB PO SCH (10:05)
[2017-04-26] MEDS: Furosemide 40 MG TAB PO SCH (10:05)
[2017-04-26] MEDS: Fenofibrate Nanocrystallized 145 MG TAB PO SCH (10:06)
[2017-04-26] MEDS: DULoxetine 30 MG CAP PO SCH ×2 (10:06→20:50)
[2017-04-26] MEDS: Atorvastatin Calcium 10 MG TAB PO SCH (10:06)
[2017-04-26] MEDS: Potassium Chloride 20 MEQ TAB PO SCH (10:06)
[2017-04-26] MEDS: Amiodarone 200 MG TAB PO SCH (10:06)
[2017-04-26] MEDS: Aspirin 325 MG TAB PO SCH (10:07)
[2017-04-26] MEDS: Acetaminophen/Codeine 30-300mg Tablet PO PRN ×2 (10:07→20:51)
[2017-04-26] MEDS: Ezetimibe 10 MG TAB PO SCH (10:08)
[2017-04-26] MEDS: Polyethylene Glycol 3350 17 GM Packet PO SCH (10:08)
[2017-04-26] MEDS: Lidocaine Viscous Sol 2% 15 ml UD Cup SSP SCH ×4 (10:08→21:00)
[2017-04-26] MEDS: Lorazepam 0.5 MG TAB PO PRN ×2 (10:08→20:49)
[2017-04-26] MEDS: Lidocaine 5% Patch TD SCH (10:09)
[2017-04-26] MEDS: Tamsulosin HCl 0.4 MG CAP PO SCH (20:52)
[2017-04-26] MEDS: traZODone HCl 50 MG TAB PO SCH (20:52)
[2017-04-26] MEDS: Lidocaine Patch Removal 1 EACH TOP SCH (21:01)
[2017-04-27 05:09] LABS: Hemoglobin 11.2 g/dL (14.0-18.0); Mean Corpuscular HGB CONC 32.5 g/dL (32.0-36.0); Mean Corpuscular Hemoglobin 29.5 pg (27.0-31.0); Mean Corpuscular Volume 90.8 fL (80.0-94.0); Mean Platelet Volume 6.8 fL (7.4-10.4); Platelet Count 55 thou/uL (130-400); RBC Distribution Width 14.4 % (11.5-14.5); Red Blood Cell (RBC) Count 3.78 mill/uL (4.70-6.10); White Blood Cell (WBC) Count 2.2 thou/uL (4.8-10.8)
[2017-04-27 05:10] LABS: Anisocytosis SLIGHT = 6-15 cells (100X) (0-5/hpf); PLT Morphology Comment Appears Decreased
[2017-04-27 05:13] LABS: #Lymphocytes 0.8 thou/uL (1.20-3.40); #Neutrophils 1.1 thou/uL (1.40-6.50); %Basophils 0.3 % (0.0-1.0); %Eosinophils 1.5 % (0.0-10.0); %Lymphocytes 38.8 % (21.0-51.0); %Monocytes 10.1 % (0.0-10.0); %Neutrophils 49.3 % (42.0-75.0)
[2017-04-27 05:14] LABS: #Monocytes 0.2 thou/uL (0.11-0.59)
[2017-04-27] MEDS: Ezetimibe 10 MG TAB PO SCH (08:50)
[2017-04-27] MEDS: Losartan Potassium 50 MG TAB PO SCH (08:50)
[2017-04-27] MEDS: Potassium Chloride 20 MEQ TAB PO SCH (08:52)
[2017-04-27] MEDS: Furosemide 40 MG TAB PO SCH (08:52)
[2017-04-27] MEDS: Amiodarone 200 MG TAB PO SCH (08:52)
[2017-04-27] MEDS: Fenofibrate Nanocrystallized 145 MG TAB PO SCH (08:52)
[2017-04-27] MEDS: Lorazepam 0.5 MG TAB PO PRN ×2 (08:52→21:24)
[2017-04-27] MEDS: Aspirin 325 MG TAB PO SCH (08:53)
[2017-04-27] MEDS: Acetaminophen/Codeine 30-300mg Tablet PO PRN (08:53)
[2017-04-27] MEDS: Calcium Carbonate 500 MG ChewTAB PO SCH ×4 (08:53→21:23)
[2017-04-27] MEDS: Carvedilol 25 MG TAB PO SCH ×2 (08:53→16:55)
[2017-04-27] MEDS: Atorvastatin Calcium 10 MG TAB PO SCH (08:53)
[2017-04-27] MEDS: Polyethylene Glycol 3350 17 GM Packet PO SCH (08:55)
[2017-04-27] MEDS: Lidocaine Viscous Sol 2% 15 ml UD Cup SSP SCH ×4 (08:55→21:25)
[2017-04-27] MEDS: DULoxetine 30 MG CAP PO SCH ×2 (08:55→21:24)
[2017-04-27] MEDS: Lidocaine 5% Patch TD SCH (08:55)
[2017-04-27 10:29] VITALS: BMI 29.6
[2017-04-27] MEDS: traMADol HCl 50 MG TAB PO PRN (21:22)
[2017-04-27] MEDS: traZODone HCl 50 MG TAB PO SCH (21:24)
[2017-04-27] MEDS: Tamsulosin HCl 0.4 MG CAP PO SCH (21:25)
[2017-04-27] MEDS: Lidocaine Patch Removal 1 EACH TOP SCH (21:25)
[2017-04-28] MEDS: Polyethylene Glycol 3350 17 GM Packet PO SCH (09:05)
[2017-04-28] MEDS: Lorazepam 0.5 MG TAB PO PRN ×2 (09:06→22:01)
[2017-04-28] MEDS: Potassium Chloride 20 MEQ TAB PO SCH (09:06)
[2017-04-28] MEDS: Furosemide 40 MG TAB PO SCH (09:06)
[2017-04-28] MEDS: Fenofibrate Nanocrystallized 145 MG TAB PO SCH (09:07)
[2017-04-28] MEDS: DULoxetine 30 MG CAP PO SCH ×2 (09:07→22:01)
[2017-04-28] MEDS: Atorvastatin Calcium 10 MG TAB PO SCH (09:07)
[2017-04-28] MEDS: Losartan Potassium 50 MG TAB PO SCH (09:07)
[2017-04-28] MEDS: Calcium Carbonate 500 MG ChewTAB PO SCH ×4 (09:07→22:04)
[2017-04-28] MEDS: Aspirin 325 MG TAB PO SCH (09:07)
[2017-04-28] MEDS: Acetaminophen/Codeine 30-300mg Tablet PO PRN ×3 (09:08→22:02)
[2017-04-28] MEDS: Ezetimibe 10 MG TAB PO SCH (09:08)
[2017-04-28] MEDS: Amiodarone 200 MG TAB PO SCH (09:08)
[2017-04-28] MEDS: Carvedilol 25 MG TAB PO SCH ×2 (09:08→18:21)
[2017-04-28] MEDS: Lidocaine 5% Patch TD SCH (09:12)
[2017-04-28] MEDS: Lidocaine Viscous Sol 2% 15 ml UD Cup SSP SCH ×4 (09:16→22:04)
[2017-04-28 10:39] LABS: %Lymphocytes 23.1 % (21.0-51.0); %Monocytes 7.6 % (0.0-10.0); Hemoglobin 13.9 g/dL (14.0-18.0); Mean Corpuscular HGB CONC 33.8 g/dL (32.0-36.0); Mean Corpuscular Hemoglobin 31.3 pg (27.0-31.0); Mean Corpuscular Volume 92.5 fL (80.0-94.0); Mean Platelet Volume 9.3 fL (7.4-10.4); Platelet Count 75 thou/uL (130-400); RBC Distribution Width 15.9 % (11.5-14.5); Red Blood Cell (RBC) Count 4.45 mill/uL (4.70-6.10); White Blood Cell (WBC) Count 3.2 thou/uL (4.8-10.8)
[2017-04-28 10:40] LABS: #Basophils 0.4 thou/uL (0.0-0.2); #Lymphocytes 0.7 thou/uL (1.20-3.40); #Monocytes 0.2 thou/uL (0.11-0.59); #Neutrophils 2.2 thou/uL (1.40-6.50); %Basophils 0.4 % (0.0-1.0)
[2017-04-28 10:41] LABS: PLT Morphology Comment Appears Decreased
[2017-04-28 10:42] LABS: Anisocytosis SLIGHT = 6-15 cells (100X) (0-5/hpf)
[2017-04-28] MEDS: traZODone HCl 50 MG TAB PO SCH (22:02)
[2017-04-28] MEDS: Tamsulosin HCl 0.4 MG CAP PO SCH (22:03)
[2017-04-28] MEDS: Lidocaine Patch Removal 1 EACH TOP SCH (22:04)
[2017-04-29] MEDS: Acetaminophen/Codeine 30-300mg Tablet PO PRN ×2 (04:15→13:46)
[2017-04-29] MEDS ORDERED: Lidocaine Viscous Sol 2% 15 ml UD Cup ONE ×3 (08:16→21:07)
[2017-04-29] MEDS: Ezetimibe 10 MG TAB PO SCH (08:22)
[2017-04-29] MEDS: Polyethylene Glycol 3350 17 GM Packet PO SCH (08:22)
[2017-04-29] MEDS: Calcium Carbonate 500 MG ChewTAB PO SCH ×4 (08:23→21:11)
[2017-04-29] MEDS: Furosemide 40 MG TAB PO SCH (08:23)
[2017-04-29] MEDS: Losartan Potassium 50 MG TAB PO SCH (08:23)
[2017-04-29] MEDS: DULoxetine 30 MG CAP PO SCH ×2 (08:23→21:11)
[2017-04-29] MEDS: Fenofibrate Nanocrystallized 145 MG TAB PO SCH (08:23)
[2017-04-29] MEDS: Carvedilol 25 MG TAB PO SCH ×2 (08:24→17:08)
[2017-04-29] MEDS: Atorvastatin Calcium 10 MG TAB PO SCH (08:24)
[2017-04-29] MEDS: Potassium Chloride 20 MEQ TAB PO SCH (08:24)
[2017-04-29] MEDS: Amiodarone 200 MG TAB PO SCH (08:24)
[2017-04-29] MEDS: Aspirin 325 MG TAB PO SCH (08:24)
[2017-04-29] MEDS: Lidocaine Viscous Sol 2% 15 ml UD Cup SSP SCH ×4 (08:25→21:12)
[2017-04-29] MEDS: Lidocaine 5% Patch TD SCH (08:25)
[2017-04-29] MEDS: traMADol HCl 50 MG TAB PO PRN (08:32)
[2017-04-29] MEDS: Lorazepam 0.5 MG TAB PO PRN (21:11)
[2017-04-29] MEDS: traZODone HCl 50 MG TAB PO SCH (21:12)
[2017-04-29] MEDS: Tamsulosin HCl 0.4 MG CAP PO SCH (21:12)
[2017-04-29] MEDS: Lidocaine Patch Removal 1 EACH TOP SCH (21:22)
[2017-04-30] MEDS: traMADol HCl 50 MG TAB PO PRN ×2 (02:48→13:09)
[2017-04-30] MEDS ORDERED: Lidocaine Viscous Sol 2% 15 ml UD Cup ONE (09:12)
[2017-04-30] MEDS: Lidocaine Viscous Sol 2% 15 ml UD Cup SSP SCH ×4 (09:28→22:19)
[2017-04-30] MEDS: Lidocaine 5% Patch TD SCH (09:28)
[2017-04-30] MEDS: Polyethylene Glycol 3350 17 GM Packet PO SCH (09:30)
[2017-04-30] MEDS: Ezetimibe 10 MG TAB PO SCH (09:30)
[2017-04-30] MEDS: Calcium Carbonate 500 MG ChewTAB PO SCH ×4 (09:31→20:41)
[2017-04-30] MEDS: Acetaminophen/Codeine 30-300mg Tablet PO PRN ×2 (09:31→20:42)
[2017-04-30] MEDS: Furosemide 40 MG TAB PO SCH (09:32)
[2017-04-30] MEDS: Atorvastatin Calcium 10 MG TAB PO SCH (09:32)
[2017-04-30] MEDS: Potassium Chloride 20 MEQ TAB PO SCH (09:32)
[2017-04-30] MEDS: Fenofibrate Nanocrystallized 145 MG TAB PO SCH (09:32)
[2017-04-30] MEDS: Losartan Potassium 50 MG TAB PO SCH (09:33)
[2017-04-30] MEDS: Carvedilol 25 MG TAB PO SCH ×2 (09:33→17:37)
[2017-04-30] MEDS: Aspirin 325 MG TAB PO SCH (09:33)
[2017-04-30] MEDS: Amiodarone 200 MG TAB PO SCH (09:33)
[2017-04-30] MEDS: DULoxetine 30 MG CAP PO SCH ×2 (09:33→20:42)
[2017-04-30] MEDS: Tamsulosin HCl 0.4 MG CAP PO SCH (20:41)
[2017-04-30] MEDS: Lorazepam 0.5 MG TAB PO PRN (20:43)
[2017-04-30] MEDS: traZODone HCl 50 MG TAB PO SCH (20:44)
[2017-04-30] MEDS: Lidocaine Patch Removal 1 EACH TOP SCH (22:19)
[2017-05-01] MEDS: Lorazepam 0.5 MG TAB PO PRN ×3 (05:57→20:51)
[2017-05-01] MEDS: DULoxetine 30 MG CAP PO SCH ×2 (09:50→20:51)
[2017-05-01] MEDS: Fenofibrate Nanocrystallized 145 MG TAB PO SCH (09:50)
[2017-05-01] MEDS: Amiodarone 200 MG TAB PO SCH (09:51)
[2017-05-01] MEDS: Aspirin 325 MG TAB PO SCH (09:51)
[2017-05-01] MEDS: Losartan Potassium 50 MG TAB PO SCH (09:51)
[2017-05-01] MEDS: Potassium Chloride 20 MEQ TAB PO SCH (09:51)
[2017-05-01] MEDS: Carvedilol 25 MG TAB PO SCH ×2 (09:51→16:45)
[2017-05-01] MEDS: Calcium Carbonate 500 MG ChewTAB PO SCH ×4 (09:52→20:50)
[2017-05-01] MEDS: Ezetimibe 10 MG TAB PO SCH (09:52)
[2017-05-01] MEDS: Atorvastatin Calcium 10 MG TAB PO SCH (09:52)
[2017-05-01] MEDS: Lidocaine Viscous Sol 2% 15 ml UD Cup SSP SCH ×4 (10:21→20:55)
[2017-05-01] MEDS: Furosemide 40 MG TAB PO SCH (10:21)
[2017-05-01] MEDS: Lidocaine 5% Patch TD SCH (10:26)
[2017-05-01] MEDS: Acetaminophen/Codeine 30-300mg Tablet PO PRN (10:56)
[2017-05-01] MEDS: Polyethylene Glycol 3350 17 GM Packet PO SCH (10:59)
[2017-05-01] MEDS: traMADol HCl 50 MG TAB PO PRN (16:45)
[2017-05-01] MEDS: Tamsulosin HCl 0.4 MG CAP PO SCH (20:50)
[2017-05-01] MEDS: Acetaminophen 325 MG TAB PO PRN (20:51)
[2017-05-01] MEDS: traZODone HCl 50 MG TAB PO SCH (20:51)
[2017-05-01] MEDS: Lidocaine Patch Removal 1 EACH TOP SCH (20:55)
[2017-05-02] MEDS: Acetaminophen/Codeine 30-300mg Tablet PO PRN ×4 (00:47→23:05)
[2017-05-02] MEDS: Ezetimibe 10 MG TAB PO SCH (09:10)
[2017-05-02] MEDS: Polyethylene Glycol 3350 17 GM Packet PO SCH (09:10)
[2017-05-02] MEDS: Calcium Carbonate 500 MG ChewTAB PO SCH ×4 (09:11→23:08)
[2017-05-02] MEDS: DULoxetine 30 MG CAP PO SCH ×2 (09:12→20:14)
[2017-05-02] MEDS: Fenofibrate Nanocrystallized 145 MG TAB PO SCH (09:12)
[2017-05-02] MEDS: Atorvastatin Calcium 10 MG TAB PO SCH (09:12)
[2017-05-02] MEDS: Losartan Potassium 50 MG TAB PO SCH (09:12)
[2017-05-02] MEDS: Amiodarone 200 MG TAB PO SCH (09:12)
[2017-05-02] MEDS: Furosemide 40 MG TAB PO SCH (09:12)
[2017-05-02] MEDS: Aspirin 325 MG TAB PO SCH (09:13)
[2017-05-02] MEDS: Lidocaine Viscous Sol 2% 15 ml UD Cup SSP SCH ×4 (09:13→20:15)
[2017-05-02] MEDS: Potassium Chloride 20 MEQ TAB PO SCH (09:13)
[2017-05-02] MEDS: Carvedilol 25 MG TAB PO SCH ×2 (09:13→17:03)
[2017-05-02] MEDS: Lidocaine 5% Patch TD SCH (09:14)
[2017-05-02] MEDS: Lorazepam 0.5 MG TAB PO PRN ×2 (10:12→20:14)
[2017-05-02] MEDS: traMADol HCl 50 MG TAB PO PRN (13:34)
[2017-05-02] MEDS: Tamsulosin HCl 0.4 MG CAP PO SCH (20:14)
[2017-05-02] MEDS: traZODone HCl 50 MG TAB PO SCH (20:15)
[2017-05-02] MEDS: Lidocaine Patch Removal 1 EACH TOP SCH (20:15)
[2017-05-03] MEDS: traMADol HCl 50 MG TAB PO PRN ×2 (06:38→15:03)
[2017-05-03] MEDS: Polyethylene Glycol 3350 17 GM Packet PO SCH (08:51)
[2017-05-03] MEDS: Ezetimibe 10 MG TAB PO SCH (08:51)
[2017-05-03] MEDS: Atorvastatin Calcium 10 MG TAB PO SCH (08:51)
[2017-05-03] MEDS: Acetaminophen/Codeine 30-300mg Tablet PO PRN ×2 (08:52→17:17)
[2017-05-03] MEDS: Calcium Carbonate 500 MG ChewTAB PO SCH ×4 (08:53→21:08)
[2017-05-03] MEDS: Lorazepam 0.5 MG TAB PO PRN ×2 (08:53→17:19)
[2017-05-03] MEDS: Furosemide 40 MG TAB PO SCH (08:53)
[2017-05-03] MEDS: Fenofibrate Nanocrystallized 145 MG TAB PO SCH (08:53)
[2017-05-03] MEDS: DULoxetine 30 MG CAP PO SCH ×2 (08:54→21:09)
[2017-05-03] MEDS: Losartan Potassium 50 MG TAB PO SCH (08:54)
[2017-05-03] MEDS: Bisacodyl 5 MG TAB PO PRN (08:54)
[2017-05-03] MEDS: Potassium Chloride 20 MEQ TAB PO SCH (08:54)
[2017-05-03] MEDS: Amiodarone 200 MG TAB PO SCH (08:55)
[2017-05-03] MEDS: Lidocaine 5% Patch TD SCH (08:55)
[2017-05-03] MEDS: Lidocaine Viscous Sol 2% 15 ml UD Cup SSP SCH ×4 (08:55→21:12)
[2017-05-03] MEDS: Aspirin 325 MG TAB PO SCH (08:55)
[2017-05-03] MEDS: Carvedilol 25 MG TAB PO SCH ×2 (08:55→17:09)
[2017-05-03] MEDS: traZODone HCl 50 MG TAB PO SCH (21:09)
[2017-05-03] MEDS: Tamsulosin HCl 0.4 MG CAP PO SCH (21:10)
[2017-05-03] MEDS: Lidocaine Patch Removal 1 EACH TOP SCH (21:11)
[2017-05-04] MEDS: Acetaminophen/Codeine 30-300mg Tablet PO PRN ×4 (00:24→22:28)
[2017-05-04] MEDS: Acetaminophen 325 MG TAB PO PRN (02:45)
[2017-05-04] MEDS: Lorazepam 0.5 MG TAB PO PRN ×2 (02:46→16:35)
[2017-05-04] MEDS: Bisacodyl 5 MG TAB PO PRN (06:51)
[2017-05-04] MEDS: Aspirin 325 MG TAB PO SCH (09:36)
[2017-05-04] MEDS: Furosemide 40 MG TAB PO SCH (09:36)
[2017-05-04] MEDS: Amiodarone 200 MG TAB PO SCH (09:36)
[2017-05-04] MEDS: Ezetimibe 10 MG TAB PO SCH (09:37)
[2017-05-04] MEDS: Carvedilol 25 MG TAB PO SCH ×2 (09:37→16:35)
[2017-05-04] MEDS: Atorvastatin Calcium 10 MG TAB PO SCH (09:37)
[2017-05-04] MEDS: Polyethylene Glycol 3350 17 GM Packet PO SCH (09:37)
[2017-05-04] MEDS: Potassium Chloride 20 MEQ TAB PO SCH (09:37)
[2017-05-04] MEDS: DULoxetine 30 MG CAP PO SCH ×2 (09:37→21:19)
[2017-05-04] MEDS: Fenofibrate Nanocrystallized 145 MG TAB PO SCH (09:37)
[2017-05-04] MEDS: Losartan Potassium 50 MG TAB PO SCH (09:37)
[2017-05-04] MEDS: Lidocaine 5% Patch TD SCH (09:38)
[2017-05-04] MEDS: Calcium Carbonate 500 MG ChewTAB PO SCH ×4 (09:38→21:20)
[2017-05-04] MEDS: Lidocaine Viscous Sol 2% 15 ml UD Cup SSP SCH ×4 (09:38→21:19)
[2017-05-04] MEDS: Lidocaine Patch Removal 1 EACH TOP SCH (21:19)
[2017-05-04] MEDS: traZODone HCl 50 MG TAB PO SCH (21:19)
[2017-05-04] MEDS: Tamsulosin HCl 0.4 MG CAP PO SCH (21:20)
[2017-05-04] MEDS: traMADol HCl 50 MG TAB PO PRN (21:25)
[2017-05-05] MEDS: Lorazepam 0.5 MG TAB PO PRN ×3 (00:35→21:14)
[2017-05-05] MEDS: Carvedilol 25 MG TAB PO SCH ×2 (09:07→17:37)
[2017-05-05] MEDS: Acetaminophen/Codeine 30-300mg Tablet PO PRN ×3 (09:07→21:14)
[2017-05-05] MEDS: Fenofibrate Nanocrystallized 145 MG TAB PO SCH (09:08)
[2017-05-05] MEDS: Amiodarone 200 MG TAB PO SCH (09:08)
[2017-05-05] MEDS: Atorvastatin Calcium 10 MG TAB PO SCH (09:08)
[2017-05-05] MEDS: DULoxetine 30 MG CAP PO SCH ×2 (09:08→21:15)
[2017-05-05] MEDS: Losartan Potassium 50 MG TAB PO SCH (09:08)
[2017-05-05] MEDS: Potassium Chloride 20 MEQ TAB PO SCH (09:08)
[2017-05-05] MEDS: Aspirin 325 MG TAB PO SCH (09:09)
[2017-05-05] MEDS: Calcium Carbonate 500 MG ChewTAB PO SCH ×4 (09:09→21:15)
[2017-05-05] MEDS: Lidocaine 5% Patch TD SCH (09:09)
[2017-05-05] MEDS: Ezetimibe 10 MG TAB PO SCH (09:09)
[2017-05-05] MEDS: Polyethylene Glycol 3350 17 GM Packet PO SCH (09:09)
[2017-05-05] MEDS: Furosemide 40 MG TAB PO SCH (09:09)
[2017-05-05] MEDS: Lidocaine Viscous Sol 2% 15 ml UD Cup SSP SCH ×4 (09:10→21:16)
[2017-05-05] MEDS ORDERED: Ventolin HFA Inhaler 60 PUFF INHALER INH PRN (10:13)
[2017-05-05] MEDS ORDERED: Lorazepam 0.5 MG TAB ONE ×2 (21:07→21:08)
[2017-05-05] MEDS: Tamsulosin HCl 0.4 MG CAP PO SCH (21:15)
[2017-05-05] MEDS: traZODone HCl 50 MG TAB PO SCH (21:15)
[2017-05-05] MEDS: Lidocaine Patch Removal 1 EACH TOP SCH (21:16)
[2017-05-06] MEDS: Acetaminophen/Codeine 30-300mg Tablet PO PRN ×2 (03:23→20:37)
[2017-05-06] MEDS: Polyethylene Glycol 3350 17 GM Packet PO SCH (08:42)
[2017-05-06] MEDS: Lidocaine 5% Patch TD SCH (08:43)
[2017-05-06] MEDS: Ezetimibe 10 MG TAB PO SCH (08:46)
[2017-05-06] MEDS: Furosemide 40 MG TAB PO SCH (08:46)
[2017-05-06] MEDS: Calcium Carbonate 500 MG ChewTAB PO SCH ×4 (08:46→22:30)
[2017-05-06] MEDS: DULoxetine 30 MG CAP PO SCH ×2 (08:46→20:35)
[2017-05-06] MEDS: Potassium Chloride 20 MEQ TAB PO SCH (08:47)
[2017-05-06] MEDS: Losartan Potassium 50 MG TAB PO SCH (08:47)
[2017-05-06] MEDS: Fenofibrate Nanocrystallized 145 MG TAB PO SCH (08:47)
[2017-05-06] MEDS: Carvedilol 25 MG TAB PO SCH ×2 (08:47→18:25)
[2017-05-06] MEDS: Aspirin 325 MG TAB PO SCH (08:47)
[2017-05-06] MEDS: Atorvastatin Calcium 10 MG TAB PO SCH (08:47)
[2017-05-06] MEDS: Amiodarone 200 MG TAB PO SCH (08:47)
[2017-05-06] MEDS: Lidocaine Viscous Sol 2% 15 ml UD Cup SSP SCH ×4 (08:48→20:39)
[2017-05-06] MEDS: traMADol HCl 50 MG TAB PO PRN (09:21)
[2017-05-06] MEDS: Lorazepam 0.5 MG TAB PO PRN (20:35)
[2017-05-06] MEDS: Tamsulosin HCl 0.4 MG CAP PO SCH (20:35)
[2017-05-06] MEDS: traZODone HCl 50 MG TAB PO SCH (20:35)
[2017-05-06] MEDS: Lidocaine Patch Removal 1 EACH TOP SCH (20:38)
[2017-05-07] MEDS: Acetaminophen/Codeine 30-300mg Tablet PO PRN (05:31)
[2017-05-07] MEDS: Lorazepam 0.5 MG TAB PO PRN (05:36)
[2017-05-07 06:28] VITALS: BP 131/66; TEMP 98.4
[2017-05-07] MEDS: Ezetimibe 10 MG TAB PO SCH (08:26)
[2017-05-07] MEDS: Lidocaine 5% Patch TD SCH (08:26)
[2017-05-07] MEDS: Calcium Carbonate 500 MG ChewTAB PO SCH (08:27)
[2017-05-07] MEDS: Polyethylene Glycol 3350 17 GM Packet PO SCH (08:27)
[2017-05-07] MEDS: Fenofibrate Nanocrystallized 145 MG TAB PO SCH (08:28)
[2017-05-07] MEDS: Furosemide 40 MG TAB PO SCH (08:28)
[2017-05-07] MEDS: Aspirin 325 MG TAB PO SCH (08:28)
[2017-05-07] MEDS: Atorvastatin Calcium 10 MG TAB PO SCH (08:28)
[2017-05-07] MEDS: Losartan Potassium 50 MG TAB PO SCH (08:29)
[2017-05-07] MEDS: DULoxetine 30 MG CAP PO SCH (08:29)
[2017-05-07] MEDS: Carvedilol 25 MG TAB PO SCH (08:29)
[2017-05-07] MEDS: Potassium Chloride 20 MEQ TAB PO SCH (08:29)
[2017-05-07] MEDS: Lidocaine Viscous Sol 2% 15 ml UD Cup SSP SCH (08:30)
[2017-05-07] MEDS: Amiodarone 200 MG TAB PO SCH (08:30)
[2017-05-07] MEDS: traMADol HCl 50 MG TAB PO PRN (08:47)
== END 2017-05-07 11:45 | DRG 281 ==
LOC: BURMED 16:54
PROVIDERS: ADMIT Family Medicine; ATTEND Family Medicine
DX: I21.4 Non-ST elevation (NSTEMI) myocardial infarction (principal); I50.22 Chronic systolic (congestive) heart failure; D61.818 Other pancytopenia; I47.1 Supraventricular tachycardia; J44.9 Chronic obstructive pulmonary disease, unspecified; E78.5 Hyperlipidemia, unspecified; K21.9 Gastro-esophageal reflux disease without esophagitis; I25.5 Ischemic cardiomyopathy; M10.9 Gout, unspecified; I25.10 Atherosclerotic heart disease of native coronary artery without angina pectoris; F32.9 Major depressive disorder, single episode, unspecified; F41.9 Anxiety disorder, unspecified; G89.29 Other chronic pain; K59.00 Constipation, unspecified; Z88.1 Allergy status to other antibiotic agents; Z88.8 Allergy status to other drugs, medicaments and biological substances; Z95.1 Presence of aortocoronary bypass graft; Z95.5 Presence of coronary angioplasty implant and graft; Z96.652 Presence of left artificial knee joint
CPT/HCPCS: 36415; 85025; 94640; G8978-GP-CK; G8979-GP-CJ; G8987-GO-CM; G8988-GO-CJ; J7512; J7620

== ENCOUNTER 2017-05-16 19:47 | Emergency (ER) | payer MEDICARE, BC ==
--- NOTE | 2017-05-16 22:57 | RAD ---
LEFT SHOULDER THREE VIEWS 05/16/17 Severe arthritic changes are seen in the glenohumeral joint consisting of nearly complete loss of the joint space, some bony spurring, and some flattening of the articular portions of the humeral head. No acute fracture or dislocation was seen. The AC joint is narrowed. The adjacent ribs appeared intac t. IMPRESSION: Severe degenerative changes of the glenohumeral joint. POS: HOME
--- NOTE | 2017-05-16 23:09 | RAD ---
RIGHT SHOULDER THREE VIEWS 05/16/17 Comparison is made with the views of the left shoulder. No fracture, dislocation, or acute bony change was seen. Some bony fragments are seen at the end of t he clavicle at the AC joint that are obviously old. It is difficult to assess the glenohumeral joint on any of the views. There is no dislocation, but the glenoid seems markedly widened and there are pr obably degenerative changes here. IMPRESSION: Chronic changes but no acute findings. POS: HOME
== END 2017-05-16 22:18 | disposition home or self-care (01) ==
LOC: BURERS 19:47
DX: M65.812 Other synovitis and tenosynovitis, left shoulder (principal); K21.9 Gastro-esophageal reflux disease without esophagitis; I25.10 Atherosclerotic heart disease of native coronary artery without angina pectoris; N40.0 Benign prostatic hyperplasia without lower urinary tract symptoms; E78.5 Hyperlipidemia, unspecified; I11.0 Hypertensive heart disease with heart failure; I50.9 Heart failure, unspecified; J44.9 Chronic obstructive pulmonary disease, unspecified; F32.9 Major depressive disorder, single episode, unspecified; Z87.891 Personal history of nicotine dependence; Z79.82 Long term (current) use of aspirin; Z79.899 Other long term (current) drug therapy

== ENCOUNTER 2017-05-30 09:36 | Emergency (ER) | payer MEDICARE, BC ==
[2017-05-30] MEDS ORDERED: Bacitracin Zinc 1 Packet ONE (10:24)
[2017-05-30] MEDS ORDERED: Ibuprofen 800 MG TAB ONE (10:30)
[2017-05-30] MEDS ORDERED: HYDROcodone/Acetaminophen 10/325 mg Tablet ONE (10:30)
--- NOTE | 2017-05-30 14:20 | RAD ---
RIGHT KNEE 4 VIEWS: DTAE: 05/30/17. FINDINGS: No fracture or joint effusion was seen. Some mild degenerative changes are present consisting of ost eophytes. There is some calcification in the lateral meniscus. IMPRESSION: Mild degenerative change. POS: HOME
--- NOTE | 2017-05-30 14:31 | RAD ---
LEFT KNEE 4 VIEWS: DATE: 05/30/17. FINDINGS: A knee arthroplasty is in place. There is no sign of loosening of hardware. No acute fracture was s een. There may be some joint fluid. IMPRESSION: No acute bony findings. POS: HOME
== END 2017-05-30 12:12 ==
LOC: BURERS 09:36
DX: S80.01XA Contusion of right knee, initial encounter (principal); S80.02XA Contusion of left knee, initial encounter; G89.29 Other chronic pain; M54.2 Cervicalgia; I25.10 Atherosclerotic heart disease of native coronary artery without angina pectoris; K21.9 Gastro-esophageal reflux disease without esophagitis; N40.0 Benign prostatic hyperplasia without lower urinary tract symptoms; E78.5 Hyperlipidemia, unspecified; I11.0 Hypertensive heart disease with heart failure; I50.9 Heart failure, unspecified; J44.9 Chronic obstructive pulmonary disease, unspecified; F32.9 Major depressive disorder, single episode, unspecified; Z87.891 Personal history of nicotine dependence; Z79.899 Other long term (current) drug therapy; Z79.82 Long term (current) use of aspirin; W07.XXXA Fall from chair, initial encounter